=== PATIENT | male | born 2000 | race Caucasian/White ===

== ENCOUNTER 2021-12-17 19:03 | Observation (INO) ==
[2021-12-17] MEDS ORDERED: SODIUM CHLORIDE 0.9% 1000ML 1,000 ML IV ONE (19:34)
[2021-12-17 19:54] LABS: Basophils # (auto) 0.03 K/uL (0-0.2); Basophils % (auto) 0.5 %; Eosinophils # (auto) 0.22 K/uL (0-0.50); Hematocrit (blood only) 43.6 % (40.1-51.0); Hemoglobin 15.1 g/dl (14.0-18.0); Immature Granulocytes # (auto) 0.02 K/uL (0.00-0.02); Immature Granulocytes % (auto) 0.4 %; Lymphocytes # (auto) 1.29 K/uL (1.2-3.4); Lymphocytes % (auto) 23.5 %; Mean Corpuscular Hgb Conc 34.6 g/dL (32.0-36.0); Mean Corpuscular Volume 86.5 fL (80.0-100.0); Monocytes % (auto) 9.1 %; Neutrophils # (auto) 3.44 K/uL (1.4-6.5); Neutrophils % (auto) 62.5 %; Platelet Count 212 K/uL (130-400); RDW Coefficient of Variation 12.4 % (11.5-14.5); RDW Standard Deviation 39.2 fL (36.4-46.3); Red Blood Count 5.04 M/uL (4.63-6.08)
--- NOTE | 2021-12-17 20:19 | Emergency Department Note ---
History of Present Illness General Chief complaint: Referred by Doctor Stated complaint: TOLD TO COME BACK, CYST REMOVED FROM NECK Time Seen by Provider: 12/17/21 19:26 History of Present Illness 21-year-old male who presents to the emergency department with his mother for wound reevaluation/abscess to the left neck region. I saw this patient 2 days ago with an I&D procedure. The patient reports that the pressure has improved, but reports that the hardness has since expanded and gotten larger. Denies any worsening pain, fever, difficulty swallowing or headache. Home Medications Medication Instructions Recorded Confirmed Type amoxicillin 875 mg-potassium 1 tab PO BID #14 tabs 12/15/21 12/17/21 Rx clavulanate 125 mg tablet Allergies Allergy/AdvReac Type Severity Reaction Status Date / Time No Known Allergies Allergy Verified 12/17/21 22:11 Past Med/Surg History Medical History Cystic acne Neck abscess Surgical History H/O eye surgery History of inguinal hernia repair Family History Grandmother Diabetes Grandfather Hypertension Social History Smoking Status: Never smoker Hx Alcohol Use: No Hx Substance Use: No Preferred Language: Czech Visual Impairment: No Limitations Hearing Ability: Normal marital status: Single Current Living Situation: Family current occupational status: unemployed Feels Safe at Home: Yes Childhood Exposure to Second-Hand Smoke: Yes Dental Care, Regularly: Yes Physical Activity Frequency: 3-4 Times per Week Seatbelt Use: always Sunscreen Use: Yes Review of Systems 10 system review was performed and was negative except for pertinent positives and negatives as indicated in history of present illness Physical Exam Vital Signs Vital Signs - 24 hr 12/17/21 19:19 12/17/21 22:24 Temperature 36.5 C Temperature Source Temporal Artery Scan Pulse Rate 86 Pulse Rate [Apical] 82 Respiratory Rate 18 13 Respiratory Depth Normal Blood Pressure 145/87 H Blood Pressure [Left Arm] 139/91 Blood Pressure Mean 106 Blood Pressure Mean [Left Arm] 107 Pulse Oximetry 99 98 Oxygen Delivery Method Room Air Room Air Sepsis Recent Fever Within 48 Hours No Sepsis New/Unexplained Change in Mental Status No Sepsis Action Taken by Nursing No Action Required CONSTITUTIONAL: Healthy and well nourished. Patient does not appear in any acute distress. HEENT: Normocephalic, atraumatic. Pupils equal, round and reactive. Pharyngeal exam shows no evidence for Aneudy's angina or retropharyngeal abscess. NECK: Examination of the left neck shows that the packing has since fallen from the wound. There is mild overriding erythema. Area of induration has notably enlarged compared to his examination from 2 days ago. LYMPHATICS: No cervical chain adenopathy appreciated. RESPIRATORY: Clear to auscultation bilaterally with no wheezing, crackles, rhonchi or stridor. CARDIOVASCULAR: Regular rate and rhythm with no murmurs, rubs or gallops. INTEGUMENTARY: No rash or other significant dermatologic conditions noted. HEMATOLOGIC: No ecchymosis or petechiae. PSYCHIATRIC: Positive affect. NEUROLOGIC: Facial sensations are intact. Course Course Patient history and physical exam were performed. Nurses notes were reviewed. Vital signs were reviewed and were normal. I did review prior labs as I did order cultures on the wound. Preliminary cultures indicate a staph species. Since the patient has had increasing induration, I did recommend CT imaging at this point. IV access was established, and labs were drawn. The patient was hydrated with a liter normal saline. The patient refused any analgesics or antiemetics. Review of labs shows an elevated sed rate and CRP, otherwise CBC and CMP were normal. CT with IV contrast of the neck shows a soft tissue density measuring 15 x 11 mm with minimal rim enhancement. I initially discussed the case with our general surgeon, Dr. Mcginnis, who reviewed CT imaging, and recommended discussing the case further with maxillofacial surgery. I then discussed the case further with Dr. Jhaveri, maxillofacial surgeon, who recommended administering IV antibiotics, and that he would review CT imaging and to evaluate the patient in the morning. He has requested hospi talist admission. Findings were discussed with Dr. Mae, ED team physician as well, who was in agreement with this plan. I did discuss the case further with the patient and mother, who was in agreement as well. The patient will be administered IV Rocephin and daptomycin. COVID-19 PCR test was negative. Administered Medications Daptomycin 275 mg/ Syringe 5.5 mls @ 2.75 mls/min IV Q24H MARTIN; Protocol Stop: 12/24/21 21:59 Last Admin: 12/17/21 22:21 Dose: 2.75 mls/min Documented By: JESSICA Discontinued Medications Sodium Chloride (Nss 1000ml) 1,000 mls @ 999 mls/hr IV .Q1H1M ONE Stop: 12/17/21 20:34 Last Infusion: 12/17/21 20:45 Dose: 0 mls/hr Documented By: Admin: 12/17/21 19:43 Dose: 999 mls/hr Documented By: JESSICA Ceftriaxone Sodium (Rocephin) 2,000 mg in 70 mls @ 140 mls/hr IV NOW STA Stop: 12/17/21 22:18 Last Infusion: 12/17/21 23:20 Dose: 0 mls/hr Documented By: Admin: 12/17/21 22:21 Dose: 140 mls/hr Documented By: JESSICA Ioversol (Optiray 300 100ml) 93 ml IV ONCE ONE Stop: 12/17/21 20:39 Last Admin: 12/17/21 20:41 Dose: 93 ml Documented By: VIDHYA Medical Decision Making Medical Records Attestation: I reviewed the patient's medical records. Home Medications Current Medication List: was personally reviewed by me Laboratory Data Attestation: I reviewed the patient's lab results. Result diagrams: 12/17/21 19:44 12/17/21 19:44 Lab Results 12/17/21 12/17/21 12/17/21 Range/Units 19:44 19:44 19:44 WBC 5.50 (4.8-10.8) K/ul RBC 5.04 (4.63-6.08) M/uL Hgb 15.1 (14.0-18.0) g/dl Hct 43.6 (40.1-51.0) % MCV 86.5 (80.0-100.0) fL MCH 30.0 (25.0-34.0) pg MCHC 34.6 (32.0-36.0) g/dL RDW Std Deviation 39.2 (36.4-46.3) fL RDW Coeff of Rogelio 12.4 (11.5-14.5) % Plt Count 212 (130-400) K/uL MPV 11.0 (9.4-12.4) fL Immature Gran % (Auto) 0.4 % Neut % (Auto) 62.5 % Lymph % (Auto) 23.5 % Pacific % (Auto) 9.1 % Eos % (Auto) 4.0 % Baso % (Auto) 0.5 % Neut # (Auto) 3.44 (1.4-6.5) K/uL Lymph # (Auto) 1.29 (1.2-3.4) K/uL Pacific # (Auto) 0.50 (0.24-0.82) K/uL Eos # (Auto) 0.22 (0-0.50) K/uL Baso # (Auto) 0.03 (0-0.2) K/uL Immature Gran # (Auto) 0.02 (0.00-0.02) K/uL ESR 46 H (0-15) mm/hr Sodium 140 (136-145) mmol/L Potassium 3.9 (3.5-5.1) mmol/L Chloride 105 (98-107) mmol/L Carbon Dioxide 27 (21-32) mmol/L Anion Gap 8 (3-11) BUN 14 (6-23) mg/dl Creatinine 1.36 (0.6-1.4) mg/dl Est Cr Clr Drug Dosing 100.8 ml/min Est GFR ( Amer) 85.6 ml/min Est GFR (Non-Af Amer) 73.9 ml/min BUN/Creatinine Ratio 10.3 (10-20) Glucose 89 (70-99(Fasting)) mg/dl Calcium 9.4 (8.5-10.1) mg/dl Total Bilirubin 0.8 (0.2-1.0) mg/dl AST 29 (13-39) U/L ALT 42 (7-52) U/L Alkaline Phosphatase 88 (34-104) U/L C-Reactive Protein 4.54 H (0-0.5) mg/dl Total Protein 7.4 (6.0-8.3) gm/dl Albumin 4.4 (3.4-5.0) gm/dl Globulin 3.0 (2.5-4.0) gm/dl Albumin/Globulin Ratio 1.5 (0.9-2) SARS-CoV-2, RNA, NAAT (NEGATIVE) 09/04/22 Range/Units 22:25 WBC (4.8-10.8) K/ul RBC (4.63-6.08) M/uL Hgb (14.0-18.0) g/dl Hct (40.1-51.0) % MCV (80.0-100.0) fL MCH (25.0-34.0) pg MCHC (32.0-36.0) g/dL RDW Std Deviation (36.4-46.3) fL RDW Coeff of Rogelio (11.5-14.5) % Plt Count (130-400) K/uL MPV (9.4-12.4) fL Immature Gran % (Auto) % Neut % (Auto) % Lymph % (Auto) % Pacific % (Auto) % Eos % (Auto) % Baso % (Auto) % Neut # (Auto) (1.4-6.5) K/uL Lymph # (Auto) (1.2-3.4) K/uL Pacific # (Auto) (0.24-0.82) K/uL Eos # (Auto) (0-0.50) K/uL Baso # (Auto) (0-0.2) K/uL Immature Gran # (Auto) (0.00-0.02) K/uL ESR (0-15) mm/hr Sodium (136-145) mmol/L Potassium (3.5-5.1) mmol/L Chloride (98-107) mmol/L Carbon Dioxide (21-32) mmol/L Anion Gap (3-11) BUN (6-23) mg/dl Creatinine (0.6-1.4) mg/dl Est Cr Clr Drug Dosing ml/min Est GFR ( Amer) ml/min Est GFR (Non-Af Amer) ml/min BUN/Creatinine Ratio (10-20) Glucose (70-99(Fasting)) mg/dl Calcium (8.5-10.1) mg/dl Total Bilirubin (0.2-1.0) mg/dl AST (13-39) U/L ALT (7-52) U/L Alkaline Phosphatase (34-104) U/L C-Reactive Protein (0-0.5) mg/dl Total Protein (6.0-8.3) gm/dl Albumin (3.4-5.0) gm/dl Globulin (2.5-4.0) gm/dl Albumin/Globulin Ratio (0.9-2) SARS-CoV-2, RNA, NAAT NEGATIVE (NEGATIVE) Imaging Data Attestation: I personally reviewed and interpreted this imaging study as follows: My Impression: My interpretation of the CT with IV contrast of the neck is suggestive of cellulitis with radiologist making mention of a 15 x 11 mm soft tissue density with minimal rim enhancement. No fluid collections appreciated. Radiologist report was reviewed. Radiologist's Impression: Soft Tissue Neck CT 12/17/21 19:33 CT soft tissue neck w con CLINICAL HISTORY: L neck abscess/sebaceous cyst Technique: Axial CT images of the soft tissues of the neck were obtained following intravenous administration of 100 cc of Omnipaque 300. Automated dose lowering techniques and/or adjustment according to patient size were utilized for this exam. CT DOSE: 694.78 mGy.cm Comparison: None available at the time of this dictation. Findings: A left-sided focus of soft tissue density measures approximately 15 x 11 mm with minimal rim enhancement. Irregular soft tissue thickening is seen in the posterior aspect of the neck without drainable fluid collection. The oropharynx, hypopharynx, larynx, and trachea are patent. No enlarged lymph nodes are seen. The parotid glands, submandibular glands, and thyroid gland are unremarkable. Imaged portions of the brain parenchyma are unremarkable. The paranasal sinuses and mastoid air cells are normal in appearance. Impression: Soft tissue density at the region of interest measures 15 x 11 mm with minimal rim enhancement. This may represent residual abscess, although no comparison imaging is available to assess evolution over time. Diffuse irregular soft tissue thickening is seen in the posterior neck which may be related to history of acne. Correlation with physical exam is recommended to exclude cellulitis. ACT 112: Negative or not required by law. Electronically signed by: Justin Sands M.D. 12/17/2021 9:14 PM Blood Pressure Blood Pressure Findings: Normal blood pressure MDM Narrative Patient presents to the emergency department for reevaluation after having an epidermoid cyst I&D 2 days ago. The patient now has increasing induration about the site, concerning for cellulitis. CT imaging does not show any drainable fluid collection, however I do feel that admission and maxillofacial consultation is warranted given that the patient feels that some of the fullness is spreading toward his inferior chin and anterior neck region. Patient is afebrile and has no significant leukocytosis. I do not suspect sepsis. No Aneudy's angina is appreciated on oropharyngeal exam. Impression & Plan Cellulitis of neck, Epidermoid cyst of neck Discharge Plan Visit Data Chief Complaint: Referred by Doctor Stated Complaint: TOLD TO COME BACK, CYST REMOVED FROM NECK ED Provider: Tyree Mae ED Midlevel Provider: Arcadio Godoy Discharge Problem: Cellulitis of neck, Epidermoid cyst of neck Forms Stand Alone Forms: My [facility] [place] [facility] Prescriptions Prescriptions: No Action amoxicillin-pot clavulanate 875-125 mg tablet 1 tab PO BID Qty: 14 0RF Rx Instructions: STARTED 12/15/21 WITH PM DOSE, FOR 14 DAYS. Referrals Referrals: Caty Pope MD [Primary Care Provider] -
[2021-12-17 20:20] LABS: Albumin Globulin Ratio 1.5 (0.9-2); Albumin Level 4.4 gm/dl (3.4-5.0); BUN Creatinine Ratio 10.3 (10-20); Bilirubin,Total 0.8 mg/dl (0.2-1.0); C Reactive Protein 4.54 mg/dl (0-0.5); Calcium 9.4 mg/dl (8.5-10.1); Creatinine Clr Calc Pharmacy 100.8 ml/min; Est GFR (African American) 85.6 ml/min; Est GFR (Non-African American) 73.9 ml/min; Potassium 3.9 mmol/L (3.5-5.1); Total Protein 7.4 gm/dl (6.0-8.3)
[2021-12-17] MEDS ORDERED: OPTIRAY 300 100mL IV ONE (20:38)
--- NOTE | 2021-12-17 21:16 | CT Scan Report ---
CT soft tissue neck w con CLINICAL HISTORY: L neck abscess/sebaceous cyst Technique: Axial CT images of the soft tissues of the neck were obtained following intravenous admini stration of 100 cc of Omnipaque 300. Automated dose lowering techniques and/or adjustment according t o patient size were utilized for this exam. CT DOSE: 694.78 mGy.cm Comparison: None available at the time of this dictation. Findings: A left-sided focus of soft tissue density measures approximately 15 x 11 mm with minimal rim enhancem ent. Irregular soft tissue thickening is seen in the posterior aspect of the neck without drainable f luid collection. The oropharynx, hypopharynx, larynx, and trachea are patent. No enlarged lymph nodes are seen. The parotid glands, submandibular glands, and thyroid gland are unremarkable. Imaged portions of the brain parenchyma are unremarkable. The paranasal sinuses and mastoid air cell s are normal in appearance. Impression: Soft tissue density at the region of interest measures 15 x 11 mm with minimal rim enhancement. This may represent residual abscess, although no comparison imaging is available to assess evolution over time. Diffuse irregular soft tissue thickening is seen in the posterior neck which may be related to history of acne. Correlation with physical exam is recommended to exclude cellulitis. ACT 112: Negative or not required by law. Electronically signed by: Justin Sands M.D. 12/17/2021 9:14 PM
[2021-12-17] MEDS ORDERED: cefTRIAXone SODIUM 2,000 MG/70 ML BAG IV STA (21:49)
[2021-12-17] MEDS ORDERED: DAPTOmycin 275 MG in SYRINGE 0 ML IV SCH (22:00)
--- NOTE | 2021-12-17 22:11 | History & Physical Report ---
Date of Service December 17, 2021 Assessment & Plan (1) Cellulitis of neck: Plan: Cellulitis and abscess of epidermoid cyst of left side of neck- Admit to general medical surgical floor Placed on daptomycin 4 mg kilogram IV every 24 hours and Unasyn 3 g IV every 6 hours. X line patient did receive a dose of daptomycin IV and ceftriaxone IV from the ED Zofran 4 mg IV every 6 hours as needed N.p.o. after midnight Acetaminophen 1 g IV every 8 hours as needed mild pain or fever NSS + KCl 20 mill equivalents at 80 mils per hour (2) Neck abscess: (3) Epidermoid cyst of neck: History of Present Illness Chief Complaint: The patient presents to the emergency department for follow-up on a worsening abscess in his left neck for which he was seen in the emergency department on 12/15 for an I&D procedure. Primary Care Provider: Caty Pope MD The patient is a 21-year-old male with a past medical history including infected epidermoid cyst of the neck, cystic acne, patellofemoral syndrome a right knee and obesity. He follows up to the emergency department this evening after having a worsening of swelling in his left neck status post I&D in the emergency department on 12/15. Maxillofacial surgery Dr. Jhaveri has been contacted by the ED, and asked that the patient be admitted to medical service and he will see the patient in the morning. Allergies Allergy/AdvReac Type Severity Reaction Status Date / Time No Known Allergies Allergy Verified 12/17/21 22:11 Home Medications Medication Instructions Recorded Confirmed Type amoxicillin 875 mg-potassium 1 tab PO BID #14 tabs 12/15/21 12/17/21 Rx clavulanate 125 mg tablet Past Med/Surg History Medical History Cystic acne Neck abscess Surgical History H/O eye surgery History of inguinal hernia repair Family History Grandmother Diabetes Grandfather Hypertension Social History Smoking Status: Never smoker Hx Alcohol Use: No Hx Substance Use: No Preferred Language: Macedonian Visual Impairment: No Limitations Hearing Ability: Normal marital status: Single Current Living Situation: Family current occupational status: unemployed Feels Safe at Home: Yes Childhood Exposure to Second-Hand Smoke: Yes Dental Care, Regularly: Yes Physical Activity Frequency: 3-4 Times per Week Seatbelt Use: always Sunscreen Use: Yes Review of Systems Review of Systems: The patient denies chest pain, palpitations, shortness of breath, dyspnea on exertion, cough, lower extremity swelling, sore throat, fevers, chills, sweats, weight change, fatigue, nausea, vomiting, diarrhea , constipation, abdominal pain, pelvic pain, blood in urine or stool, dysuria, urinary frequency or urgency, lightheadedness, dizziness, headache, memory loss, loss of consciousness, rash, abnormal bruising or bleeding, imbalance, focal or generalized weakness, numbness or tingling in arms or legs, generalized arthralgias or myalgias, back or neck pain, or night sweats. The review of systems is otherwise negative other than for that already noted above, and at least 10 systems have been reviewed. Physical Exam Physical Exam: The patient is awake, alert and oriented 3, well developed and well nourished, normocephalic and atraumatic, lying in bed and in no acute distress. HEENT--PERRL, EOMI, mucous membranes and oropharynx dry. Neck--large swelling, erythema and warmth of left side of neck involving mandibular area and lateral cervical soft tissue Heart--normal S1 and S2. No murmurs, rubs or gallops. Lungs--clear bilaterally, no respiratory distress, no accessory muscle use. Abdomen--normal bowel sounds and soft. Nontender. Nondistended, no hernias or masses, no organomegaly. Extremities--no cyanosis or clubbing. No edema. There are good distal pulses b/l. Dermatologic--normal skin turgor, normal color, no abnormal lymph nodes, no rash. Neurologic--cranial nerves II through XII grossly intact. Rheumatologic--normal range of motion. Psychiatric--normal affect. Results & Data Results & Data ([facility]) Vital Signs (Past 12 Hours) Vital Signs Temp Pulse Resp BP Pulse Ox O2 Del Method 12/17/21 19:19 36.5 C 86 18 145/87 H 99 Room Air Laboratory Results Laboratory Results WBC 5.50 K/ul (4.8-10.8) 12/17/21 19:44 RBC 5.04 M/uL (4.63-6.08) 12/17/21 19:44 Hgb 15.1 g/dl (14.0-18.0) 12/17/21 19:44 Hct 43.6 % (40.1-51.0) 12/17/21 19:44 MCV 86.5 fL (80.0-100.0) 12/17/21 19:44 MCH 30.0 pg (25.0-34.0) 12/17/21 19:44 MCHC 34.6 g/dL (32.0-36.0) 12/17/21:44 RDW Std Deviation 39.2 fL (36.4-46.3) 12/17/21:44 RDW Coeff of Rogelio 12.4 % (11.5-14.5) 12/17/21 19:44 Plt Count 212 K/uL (130-400) 12/17/21 19:44 MPV 11.0 fL (9.4-12.4) 12/17/21 19:44 Immature Gran % (Auto) 0.4 % 12/17/21 19:44 Neut % (Auto) 62.5 % 12/17/21 19:44 Lymph % (Auto) 23.5 % 12/17/21 19:44 Parmer % (Auto) 9.1 % 12/17/21 19:44 Eos % (Auto) 4.0 % 12/17/21 19:44 Baso % (Auto) 0.5 % 12/17/21 19:44 Neut # (Auto) 3.44 K/uL (1.4-6.5) 12/17/21 19:44 Lymph # (Auto) 1.29 K/uL (1.2-3.4) 12/17/21 19:44 Parmer # (Auto) 0.50 K/uL (0.24-0.82) 12/17/21 19:44 Eos # (Auto) 0.22 K/uL (0-0.50) 12/17/21 19:44 Baso # (Auto) 0.03 K/uL (0-0.2) 12/17/21:44 Immature Gran # (Auto) 0.02 K/uL (0.00-0.02) 12/17/21 19:44 ESR 46 mm/hr (0-15) H 12/17/21 19:44 Sodium 140 mmol/L (136-145) 12/17/21 19:44 Potassium 3.9 mmol/L (3.5-5.1) 12/17/21 19:44 Chloride 105 mmol/L (98-107) 12/17/21 19:44 Carbon Dioxide 27 mmol/L (21-32) 12/17/21 19:44 Anion Gap 8 (3-11) 12/17/21 19:44 BUN 14 mg/dl (6-23) 12/17/21 19:44 Creatinine 1.36 mg/dl (0.6-1.4) 12/17/21 19:44 Est Cr Clr Drug Dosing 100.8 ml/min 12/17/21 19:44 Est GFR ( Amer) 85.6 ml/min 12/17/21 19:44 Est GFR (Non-Af Amer) 73.9 ml/min 12/17/21 19:44 BUN/Creatinine Ratio 10.3 (10-20) 12/17/21 19:44 Glucose 89 mg/dl (70-99(Fasting)) 12/17/21 19:44 Calcium 9.4 mg/dl (8.5-10.1) 12/17/21 19:44 Total Bilirubin 0.8 mg/dl (0.2-1.0) 12/17/21 19:44 AST 29 U/L (13-39) 12/17/21 19:44 ALT 42 U/L (7-52) 12/17/21 19:44 Alkaline Phosphatase 88 U/L (34-104) 12/17/21 19:44 C-Reactive Protein 4.54 mg/dl (0-0.5) H 12/17/21 19:44 Total Protein 7.4 gm/dl (6.0-8.3) 12/17/21 19:44 Albumin 4.4 gm/dl (3.4-5.0) 12/17/21 19:44 Globulin 3.0 gm/dl (2.5-4.0) 12/17/21 19:44 Albumin/Globulin Ratio 1.5 (0.9-2) 12/17/21 19:44 SARS-CoV-2, RNA, NAAT NEGATIVE (NEGATIVE) 12/17/21 22:25 Impressions Soft Tissue Neck CT 12/17/21 19:33 CT soft tissue neck w con CLINICAL HISTORY: L neck abscess/sebaceous cyst Technique: Axial CT images of the soft tissues of the neck were obtained following intravenous administration of 100 cc of Omnipaque 300. Automated dose lowering techniques and/or adjustment according to patient size were utilized for this exam. CT DOSE: 694.78 mGy.cm Comparison: None available at the time of this dictation. Findings: A left-sided focus of soft tissue density measures approximately 15 x 11 mm with minimal rim enhancement. Irregular soft tissue thickening is seen in the posterior aspect of the neck without drainable fluid collection. The oropharynx, hypopharynx, larynx, and trachea are patent. No enlarged lymph nodes are seen. The parotid glands, submandibular glands, and thyroid gland are unremarkable. Imaged portions of the brain parenchyma are unremarkable. The paranasal sinuses and mastoid air cells are normal in appearance. Impression: Soft tissue density at the region of interest measures 15 x 11 mm with minimal rim enhancement. This may represent residual abscess, although no comparison im aging is available to assess evolution over time. Diffuse irregular soft tissue thickening is seen in the posterior neck which may be related to history of acne. Correlation with physical exam is recommended to exclude cellulitis. ACT 112: Negative or not required by law. Electronically signed by: Justin Sands M.D. 12/17/2021 9:14 PM Code Status & VTE Plan Code Status Full code VTE Prophylaxis Plan VTE Prophylaxis will be ordered: Yes PG Care Time/CCT Total # of Minutes Spent Total Time Spent with Patient: Total time spent is greater than 50% in coordination of care (as documented) at patient's floor/unit and/or counseling patient: Coding Level of Care Code 58237 Initial Inpt Care Lvl 2 Diagnoses Cellulitis of neck L03.221 Neck abscess L02.11 Epidermoid cyst of neck L72.0
[2021-12-18] MEDS ORDERED: ONDANSETRON INJ 2 MG/ML 2 ML VIAL IV PRN (04:08)
[2021-12-18] MEDS ORDERED: NSS + 20MEQ KCL 20 MEQ/1,000 ML BAG IV SCH (04:08)
[2021-12-18] MEDS ORDERED: ACETAMINOPHEN 1,000 MG/100 ML VIAL IV PRN (04:08)
[2021-12-18] MEDS: AMPICILLIN/SULBACTAM SOD 3,000 MG in 0.9 % SODIUM CHLORIDE 100 ML IV SCH ×2 (05:47→11:12)
[2021-12-18 05:58] LABS: Basophils # (auto) 0.04 K/uL (0-0.2); Basophils % (auto) 0.8 %; Eosinophils # (auto) 0.22 K/uL (0-0.50); Eosinophils % (auto) 4.3 %; Hematocrit (blood only) 43.4 % (40.1-51.0); Hemoglobin 14.9 g/dl (14.0-18.0); Immature Granulocytes # (auto) 0.03 K/uL (0.00-0.02); Immature Granulocytes % (auto) 0.6 %; Lymphocytes # (auto) 1.38 K/uL (1.2-3.4); Lymphocytes % (auto) 26.7 %; Mean Corpuscular Hemoglobin 29.9 pg (25.0-34.0); Mean Corpuscular Hgb Conc 34.3 g/dL (32.0-36.0); Mean Platelet Volume 10.8 fL (9.4-12.4); Monocytes # (auto) 0.49 K/uL (0.24-0.82); Monocytes % (auto) 9.5 %; Neutrophils # (auto) 3.01 K/uL (1.4-6.5); Neutrophils % (auto) 58.1 %; Platelet Count 199 K/uL (130-400); RDW Coefficient of Variation 12.3 % (11.5-14.5); RDW Standard Deviation 39.5 fL (36.4-46.3); Red Blood Count 4.99 M/uL (4.63-6.08); White Blood Count 5.17 K/ul (4.8-10.8)
[2021-12-18 06:17] LABS: Partial Thromboplastin Ratio 1.1; Partial Thromboplastin Time 30.4 Seconds (21.0-31.0); Prothrombin Time 10.6 Seconds (9.0-12.0)
[2021-12-18 06:24] LABS: Albumin Globulin Ratio 1.4 (0.9-2); Albumin Level 3.8 gm/dl (3.4-5.0); BUN Creatinine Ratio 11.7 (10-20); Bilirubin,Total 0.7 mg/dl (0.2-1.0); Calcium 8.9 mg/dl (8.5-10.1); Creatinine Clr Calc Pharmacy 133.2 ml/min; Est GFR (African American) 119.8 ml/min; Est GFR (Non-African American) 103.4 ml/min; Globulin 2.8 gm/dl (2.5-4.0); Potassium 3.8 mmol/L (3.5-5.1); Total Protein 6.6 gm/dl (6.0-8.3)
--- NOTE | 2021-12-18 10:25 | Oral/Maxillofacial Consult ---
Date of Consultation December 18, 2021 History of Present Illness Attending Physician: Jeffrey Mcrae History of Present Illness 21-year-old male who presents to the emergency department with his mother for wound reevaluation/abscess to the left neck region.The patient was treated 2 days ago with an I&D procedure. The patient reports that the pressure has improved, but reports that the hardness has since expanded and gotten larger. Denies any worsening pain, fever, difficulty swallowing or headache. On Dec 15 I and D in ER with packing I&D procedure was performed under local anesthesia after receiving verbal consent from the patient. Using buffered lidocaine 1% without epinephrine, good local anesthesia was administered. The area was painted with iodine and allowed to dry. Sterile field was created. Using a #11 scalpel, and using care to not go too deep within the tissue, a 1 cm incision was made with copious cottage cheese-appearing discharge. No significant purulent drainage noted. Cultures were collected. Using needle drivers, and again using caution to avoid underlying structures, underlying loculations were further opened. The wound was expressed for approximately 7 cc of material. The wound was then lightly irrigated with normal saline, then 0.25 inch plain packing was inserted into the margins of the underlying cavity. A bacitracin dressing was applied. Dec 18 I saw patient at 10 am December 18 ib room B8 in ER. His pain has lessened and as expected the swelling in well localized to the surgical site. It is hard from the recent I&D with packing (packing out). I prepped the site and introduced a needle but there was no pus or hematoma-just dense tissue. It is my opinion that the patient may be discharged after his next IV antibiotic infusion and treated with oral antibiotics. He MUST use warm a compress to the area to soften the surgical site and take the oral antibiotics as suggested. I will see him in my office in 7-10 for sooner as needed. The plan will be to allow the lesion to heal and once to a manageable size the dermoid cyst can be surgical removed. He was in agreement with this approach. Since he is admitted on a medical service I will see if they are on line with my plan. I will Rx Augmentin 875 x 10 days Allergies Allergy/AdvReac Type Severity Reaction Status Date / Time No Known Allergies Allergy Verified 12/17/21 22:11 Home Medications Medication Instructions Recorded Confirmed Type amoxicillin 875 mg-potassium 1 tab PO BID #14 tabs 12/15/21 12/17/21 Rx clavulanate 125 mg tablet Patient History Medical History Cystic acne Neck abscess Surgical History H/O eye surgery History of inguinal hernia repair Family History Grandmother Diabetes Grandfather Hypertension Social History Smoking Status: Never smoker Hx Alcohol Use: No Hx Substance Use: No Preferred Language: Bur[place]ian Communication Ability: Effective Visual Impairment: No Limitations Hearing Ability: Normal Construction Mgr Required: No Beliefs That Will Affect Care: None marital status: Single Current Living Situation: Family current occupational status: unemployed Feels Safe at Home: Yes Childhood Exposure to Second-Hand Smoke: Yes Dental Care, Regularly: Yes Physical Activity Frequency: 3-4 Times per Week Seatbelt Use: always Sunscreen Use: Yes Results & Data ([facility]) Vital Signs (Past 12 Hours) Vital Signs Pulse Resp BP Pulse Ox O2 Del Method 12/18/21 10:22 87 16 139/76 100 Room Air 12/18/21 06:00 70 16 139/76 97 12/17/21 22:24 82 13 139/91 98 Room Air PG Care Time/CCT Total # of Minutes Spent Total Time Spent with Patient: Total time spent is greater than 50% in coordination of care (as documented) at patient's floor/unit and/or counseling patient: Coding Level of Care Code 36503 Office/Outpt Visit, New
--- NOTE | 2021-12-18 12:21 | Discharge Summary ---
Date of Service date of admission - December 17, 2021 date of discharge - December 18, 2021 Admission HPI Per Admitting Provider The patient is a 21-year-old male with a past medical history including infected epidermoid cyst of the neck, cystic acne, patellofemoral syndrome a right knee and obesity. He follows up to the emergency department this evening after having a worsening of swelling in his left neck status post I&D in the emergency department on 12/15. Maxillofacial surgery Dr. Jhaveri has been contacted by the ED, and asked that the patient be admitted to medical service and he will see the patient in the morning. Principal Diagnosis Left-sided neck abscess in the setting of severe, chronic cystic acne Discharge Exam gen - NAD heart - RRR, s1 s2, no murmur lungs - CTA b/l abd - soft NT ND BS+ ext - no edema, pulses 2+ b/l skin - severe scarring from cystic acne on posterior neck and somewhat on anterior neck; left neck region laterally - 2cm x 2cm region of induration, central opening from prior I/D, minimal amount of purulent debris from this opening, no erythema of the indurated area, minimal tenderness over indurated area Discharge Data Allergies Allergy/AdvReac Type Severity Reaction Status Date / Time No Known Allergies Allergy Verified 12/17/21 22:11 Consultations Oromaxillofacial Surgery - Dr Ricky Jhaveri Ordered Studies Soft Tissue Neck CT 12/17/21 19:33 CT soft tissue neck w con CLINICAL HISTORY: L neck abscess/sebaceous cyst Technique: Axial CT images of the soft tissues of the neck were obtained following intravenous administration of 100 cc of Omnipaque 300. Automated dose lowering techniques and/or adjustment according to patient size were utilized for this exam. CT DOSE: 694.78 mGy.cm Comparison: None available at the time of this dictation. Findings: A left-sided focus of soft tissue density measures approximately 15 x 11 mm with minimal rim enhancement. Irregular soft tissue thickening is seen in the posterior aspect of the neck without drainable fluid collection. The oropharynx, hypopharynx, larynx, and trachea are patent. No enlarged lymph nodes are seen. The parotid glands, submandibular glands, and thyroid gland are unremarkable. Imaged portions of the brain parenchyma are unremarkable. The paranasal sinuses and mastoid air cells are normal in appearance. Impression: Soft tissue density at the region of interest measures 15 x 11 mm with minimal rim enhancement. This may represent residual abscess, although no comparison imaging is available to assess evolution over time. Diffuse irregular soft tissue thickening is seen in the posterior neck which may be related to history of acne. Correlation with physical exam is recommended to exclude cellulitis. ACT 112: Negative or not required by law. Electronically signed by: Justin Sands M.D. 12/17/2021 9:14 PM Hospital Course (1) Neck abscess: lateral left neck - in the setting of severe, baseline cystic acne. the infected cyst was initially incised/drained in the [facility] ER on 12/15/21. culture from the I/D was growing coag negative staph at time of this admission but sensitivities were pending. the patient received IV antibiotic therapy (IV unasyn + IV daptomycin). Pain, swelling, and mild erythema improved with such. he was seen in consult by Dr Ricky Jhaveri - oral surgery - who recommended ongoing PO antibiotics at home and follow-up in the office to determine timing of complete cyst removal. warm compresses were advised to promote resolution of the induration. at discharge I advised adding doxycycline to the augmentin as the coag neg staph sensitivities were still pending. I counseled the patient that I would contact him within 48 hours of discharge letting him know which antibiotic to continue with at home - final culture should be available within that time frame. he should f/u with his PCP THIS WEEK to recheck the abscess, then follow-up with Dr Jhaveri in about 10 days. Total Time Total Time Spent Total Time Spent (In Minutes): 25 Discharge Plan Discharge Items Patient Disposition: Home - Self-Care Reason For Visit: NECK ABSCESS Discharge Diagnosis: left-sided neck abscess - due to staph infection Activity: Resume your previous activity Bathing Comment: ok to shower, but avoid immersing the neck in a tub bath; no swimming Non-emergency contact: Primary Care Provider and Specialist Call non-emergency contact if: you have any medication questions, your symptoms worsen, your pain is not controlled, your pain is worsening, you have a fever, your wound has increased redness, your wound has increased drainage and your wound pain has increased Follow-up/Referrals: Caty Pope MD [Primary Care Provider] - (see Dr Pope in 2-3 days) Jhaveri,Ricky R, DMD [Physician] - (10 days for recheck of left sided neck abscess ) Diet: Regular Addtl Attending Provider Instructions: Mr Gasca, You were treated for a left-sided neck abscess. The culture from 12/15/21 is growing staph infection. While here on 12/17 and 12/18 you received multiple doses of IV antibiotics. The swelling and pain over the left neck has improved. You were seen by Dr Ricky Jhaveri, an oral surgeon. He recommended ongoing antibiotics at home, frequent warm compresses to the abscess/cyst area, and follow-up with him in 7-10 days. Recommendations - 1. antibiotics - * continue your amoxicillin-clavulanate antibiotic that was given to you previously * take your next dose of this TONIGHT before bed * finish the current bottle of this medication * again this antibiotic is twice daily * I am prescribing you a 2nd antibiotic called "doxycycline". * take 100mg twice daily * take your first dose TONIGHT * this medication can sometimes cause heartburn * it can also cause a rash if you go out and get lots of sun exposure; thus, later this week, please cover up and use plenty of sunscreen as long as you are on doxycycline 2. probiotics - I have prescribed probiotics to you. Take these for 10 days. Probiotics may help prevent diarrhea while you are on the amoxicillin- clavulanate and the doxycycline. Eat yogurt daily while on the antibiotics well. 3. Warm compresses - take a washcloth, soak it in warm/hot water, and massage the cyst/abscess area for 20-30 minutes, 4-5 times a day or more. This will help speed up resolution of the abscess. 4. Avga-xcc-rniniie ibuprofen - may take ibuprofen for pain and swelling of the neck. Can take 600mg every 6-8 hours as needed/as desired. Just know that the doxycycline and ibuprofen can irritate your stomach. 5. Once the final culture has returned I will call you and tell you which of the 2 antibiotics to continue on. In the meantime take both antibiotics. Follow-up - see separate section Return to [facility] if - * you have fevers over 100 degrees * you develop severe diarrhea while on the antibiotics * you have worsening pain/redness/swelling/drainage from the left neck cyst/abscess * any other concerns Pending Studies at Discharge: Yes Studies:: culture from left neck abscess - growing staph infection, final culture pending Stand-Alone Forms: [facility], Smoking Cessation Medications and DC Order Prescriptions: New doxycycline hyclate 100 mg tablet 100 mg PO BID 10 Days Qty: 20 0RF Rx Instructions: first dose evening of 12/18/21 Saccharomyces boulardii 250 mg capsule 250 mg PO DAILY 10 Days Qty: 10 0RF Continued amoxicillin-pot clavulanate 875-125 mg tablet 1 tab PO BID Qty: 14 0RF Rx Instructions: STARTED 12/15/21 WITH PM DOSE, FOR 14 DAYS. Discharge Orders: Discharge Order (Routine); Ordered 12/18/21 Ordered By: Jeffrey Mcrae Admission Data Admit Date/Time: 12/17/21 22:10 Attending Provider: Jeffrey Mcrae Admit Provider: Cesar Nesbitt Primary Care Provider: Caty Pope Other Providers: Cesar Nesbitt ; Ricky Jhaveri Other Interventions: Discharge Summary Assessment (RN) Last Done: 12/18/21 12:24 Coding Level of Care Code D/C DAY MANAGEMENT <30 MINS Diagnoses Neck abscess L02.11
[2021-12-18] MEDS ORDERED: DAPTOmycin 300 MG in SYRINGE 0 ML IV SCH (18:00)
== END 2021-12-18 12:26 | disposition home or self-care (01) ==
LOC: ED 19:03 → EDINP 22:10 → SUATTDRO 22:10 → INTOOBSV 22:10 → EDINP 12-18 04:17